=== PATIENT | female | born 1990 | race Caucasian/White ===

== ENCOUNTER 2025-03-28 18:35 | Emergency (ER) | payer BC, SELFPAY ==
[2025-03-28 20:23] LABS: Glucose, Urine (Dipstick) Normal (Negative); Leukocyte 25 (Negative); Protein, Urine (Dipstick) Negative (Neg-Trace); Specific Gravity, Urine 1.025 (1.005-1.030)
[2025-03-28 20:45] LABS: Pregnancy Test - Urine (BHCG) Negative (Negative); Pregu Control Background? CLEAR/WHITE (CLR/WHITE); Pregu Control Bar Appear? YES (CONTROL BAR)
[2025-03-28 21:01] LABS: CAUTI Indications for Culture Pelvic or flank pain; RBC/HPF 0-3 HPF (0-3); WBC/HPF 0-3 HPF (0-3)
[2025-03-28 21:04] LABS: Bacteria/HPF 2+ HPF (None Seen)
[2025-03-28 21:07] LABS: Mucous/LPF 2+ LPF (<2+)
[2025-03-28 21:25] LABS: Urine Culture Reflex No No
== END 2025-03-28 22:17 | disposition home or self-care (01) ==
LOC: CSHERS 18:35
DX: M47.815 Spondylosis without myelopathy or radiculopathy, thoracolumbar region (principal); N39.0 Urinary tract infection, site not specified; I10 Essential (primary) hypertension
CPT/HCPCS: 74176; 81001; 81025